=== PATIENT | male | born 1955 | race Hispanic/Latino ===

== ENCOUNTER → 2021-04-30 | Outpatient (CLI) | payer BC ==
[~2021-04-30] MED LIST: IBUP-2071 PO
== END | disposition home or self-care (01) ==
LOC: RAH 07:47
PROVIDERS: ATTEND Family Medicine
DX: M47.27 Other spondylosis with radiculopathy, lumbosacral region (principal); M48.07 Spinal stenosis, lumbosacral region; R25.2 Cramp and spasm; R94.31 Abnormal electrocardiogram [ECG] [EKG]
CPT/HCPCS: 72148

== ENCOUNTER 2023-05-25 10:43 | Inpatient (IN) | payer OTHER ==
[~2023-05-25] VITALS: Ht 165.1 cm; Wt 69.6 kg
[2023-05-25] MEDS ORDERED: PANTOPRAZOLE 40 MG/VIAL IVP ONE (14:30)
[2023-05-25] MEDS ORDERED: MORPHINE 4 MG SYG IVP ONE (14:30)
[2023-05-25] MEDS ORDERED: ONDANSETRON 4MG INJ IVP ONE (14:30)
[2023-05-25] MEDS ORDERED: DEXAMETHASONE SOD PHOSPHATE 4 MG/ML 1ML VIAL IV ONE (14:30)
[2023-05-25] MEDS ORDERED: KETOROLAC 15MG/ML VIAL (15MG/ML) IV ONE (14:30)
[2023-05-25] MEDS ORDERED: 0.9%NACL 1000ML 1,000 ML IV ONE (14:30)
[2023-05-25 15:08] LABS: BASOPHILS % (AUTO) 0.1 % (0.0-5.0); EOSINOPHILS % (AUTO) 0.6 % (0.0-8.0); HEMATOCRIT 49.3 % (42-54); LYMPHOCYTES % (AUTO) 9.2 % (21.0-51.0); MEAN CORPUSCULAR HEMOGLOBIN 33.1 pg (27.0-33.0); MEAN CORPUSCULAR HGB CONC 34.5 g/dL (32.0-36.0); MEAN CORPUSCULAR VOLUME 95.9 fL (79-99); MONOCYTES % (AUTO) 10.6 % (3.0-13.0); NEUTROPHILS % (AUTO) 73.5 % (40.0-77.0); PLATELET COUNT (AUTO) 254 K/uL (130-400); RED BLOOD CELL COUNT(AUTO) 5.14 MIL/uL (4.50-6.20); RED CELL DISTRIBUTION WIDTH 12.7 % (11.0-15.5); WHITE BLOOD COUNT (AUTO) 14.6 K/uL (4.8-10.8)
[2023-05-25 15:27] LABS: CREATININE 0.7 mg/dL (0.5-1.5); POTASSIUM 4.3 mmol/L (3.5-5.1)
[2023-05-25 15:31] LABS: ALBUMIN 3.5 g/dL (3.5-5.0); TOTAL PROTEIN, SERUM 6.9 g/dL (6.0-8.3)
[2023-05-25 15:44] LABS: APPEARANCE,URINE CLEAR (CLEAR); BILIRUBIN,URINE NEGATIVE (NEGATIVE); COLOR,URINE YELLOW (YELLOW); GLUCOSE, URINE (UA) NEGATIVE (NEGATIVE); KETONES,URINE NEGATIVE (NEGATIVE); LEUKOCYTE ESTERASE ,URINE NEGATIVE Leu/uL (NEGATIVE); NITRATE,URINE NEGATIVE (NEGATIVE); OCCULT BLOOD,URINE NEGATIVE (NEGATIVE); PROTEIN,URINE NEGATIVE (NEGATIVE); UROBILINOGEN,URINE 0.2 mg/dL (0.2-1.0)
[2023-05-25] MEDS ORDERED: HYDROMORPHONE 0.5 MG SYG (0.5MG/0.5ML) IVP ONE (16:00)
[2023-05-25] MEDS ORDERED: ONDANSETRON 4MG INJ IVP PRN (17:30)
[2023-05-25] MEDS ORDERED: ACETAMINOPHEN 325 MG TAB PO PRN (17:30)
[2023-05-25] MEDS: HEPARIN 5,000 UNIT VIAL SQ SCH (18:32)
[2023-05-25] MEDS: TRAMADOL HCL 50 MG TABLET PO PRN (18:38)
[2023-05-25] MEDS: HYDROMORPHONE 0.5 MG SYG (0.5MG/0.5ML) IVP PRN (23:33)
[2023-05-26] MEDS: HYDROMORPHONE 0.5 MG SYG (0.5MG/0.5ML) IVP PRN ×3 (04:16→21:41)
[2023-05-26] MEDS: HEPARIN 5,000 UNIT VIAL SQ SCH ×2 (06:11→17:30)
[2023-05-26 07:12] LABS: BASOPHILS % (AUTO) 0.7 % (0.0-5.0); EOSINOPHILS % (AUTO) 0.1 % (0.0-8.0); HEMATOCRIT 46.3 % (42-54); LYMPHOCYTES % (AUTO) 6.3 % (21.0-51.0); MEAN CORPUSCULAR HEMOGLOBIN 33.1 pg (27.0-33.0); MEAN CORPUSCULAR VOLUME 94.7 fL (79-99); MONOCYTES % (AUTO) 5.8 % (3.0-13.0); NEUTROPHILS % (AUTO) 82.5 % (40.0-77.0); PLATELET COUNT (AUTO) 262 K/uL (130-400); RED BLOOD CELL COUNT(AUTO) 4.89 MIL/uL (4.50-6.20); RED CELL DISTRIBUTION WIDTH 12.6 % (11.0-15.5); WHITE BLOOD COUNT (AUTO) 13.4 K/uL (4.8-10.8)
[2023-05-26 07:28] LABS: CREATININE 0.7 mg/dL (0.5-1.5); POTASSIUM 4.4 mmol/L (3.5-5.1); TOTAL PROTEIN, SERUM 6.4 g/dL (6.0-8.3)
[2023-05-26] MEDS: TRAMADOL HCL 50 MG TABLET PO PRN ×2 (07:43→21:38)
[2023-05-26 11:05] VITALS: BP 150/94; PULSE 76; RESP 18
[2023-05-26] MEDS ORDERED: HYDR-4060 PO (11:51)
[2023-05-26] MEDS ORDERED: GABA300S3 PO (11:51)
[2023-05-26] MEDS ORDERED: CYCL-309 PO (11:51)
[2023-05-26] MEDS ORDERED: BACL5TAB PO (11:51)
[2023-05-26] MEDS ORDERED: MAG/ALUM/SIMETH 30 ML UDCUP PO ONE (13:00)
[2023-05-26] MEDS ORDERED: MAG/ALUM/SIMETH 30 ML UDCUP PO PRN (13:00)
[2023-05-26] MEDS ORDERED: GABA300C PO (14:26)
[2023-05-26 16:00] VITALS: BP 148/89; PULSE 85; RESP 19
[2023-05-26] MEDS ORDERED: GADOTERATE MEGLUMINE 10 MMOL/20 ML VIAL IV ONE (16:05)
[2023-05-26 20:00] VITALS: BP 141/88; PULSE 99; RESP 20
[2023-05-26] MEDS: GABAPENTIN 300 MG CAPSULE PO SCH (20:13)
[2023-05-26] MEDS ORDERED: GABAPENTIN 300 MG CAPSULE PO SCH (21:00)
[2023-05-26 23:50] VITALS: BP 136/78; PULSE 77; RESP 19
[2023-05-27] VITALS (25 sets, daily range): BP systolic 103–164; BP diastolic 54–104; PULSE 66–111; RESP 12–19
[2023-05-27] MEDS: HYDROMORPHONE 0.5 MG SYG (0.5MG/0.5ML) IVP PRN ×3 (01:56→18:24)
[2023-05-27] MEDS: HEPARIN 5,000 UNIT VIAL SQ SCH ×2 (04:31→18:26)
[2023-05-27 07:54] LABS: HEMATOCRIT 46.6 % (42-54); MEAN CORPUSCULAR HEMOGLOBIN 33.1 pg (27.0-33.0); MEAN CORPUSCULAR HGB CONC 35.4 g/dL (32.0-36.0); MEAN CORPUSCULAR VOLUME 93.6 fL (79-99); RED BLOOD CELL COUNT(AUTO) 4.98 MIL/uL (4.50-6.20); RED CELL DISTRIBUTION WIDTH 12.6 % (11.0-15.5)
[2023-05-27] MEDS ORDERED: MIDAZOLAM HCL 1 MG/ML 2ML VIAL ONE (07:59)
[2023-05-27] MEDS ORDERED: LIDOCAINE PF 100MG/5ML (2%) SYRINGE 5ML ONE (07:59)
[2023-05-27] MEDS ORDERED: DEXAMETHASONE SOD PHOSPHATE 10MG/ML 1ML VIAL ONE ×2 (07:59→08:03)
[2023-05-27] MEDS ORDERED: SUCCINYLCHOLINE CHLORIDE 20 MG/ML 10 ML VIAL ONE (07:59)
[2023-05-27] MEDS ORDERED: GLYCOPYRROLATE 1 MG/5 ML SYRINGE ONE (07:59)
[2023-05-27] MEDS ORDERED: PROPOFOL 10 MG/ML 20ML VIAL IV ONE ×2 (08:00→10:58)
[2023-05-27] MEDS ORDERED: NEOSTIGMINE 5MG/5ML SYR IV ONE (08:00)
[2023-05-27] MEDS ORDERED: ONDANSETRON 4MG INJ ONE ×2 (08:00→08:03)
[2023-05-27] MEDS ORDERED: FENTANYL CITRATE PF 50 MCG/1 ML 2ML VIAL ONE ×4 (08:00→11:26)
[2023-05-27] MEDS ORDERED: ROCURONIUM 10MG/1ML SYR 10 MG/ML ML ONE (08:00)
[2023-05-27] MEDS: GABAPENTIN 300 MG CAPSULE PO SCH ×2 (08:05→22:39)
[2023-05-27] MEDS ORDERED: ARTIFICIAL TEARS 3.5 GM OINTMENT ONE (08:06)
[2023-05-27 08:07] LABS: CREATININE 0.7 mg/dL (0.5-1.5); POTASSIUM 4.3 mmol/L (3.5-5.1)
[2023-05-27] MEDS ORDERED: PHENYLEPHRINE HCL 10 MG/ML 1ML VIAL IV ONE (08:07)
[2023-05-27] MEDS ORDERED: PHARMACY COMMUNICATION MISC SCH (08:30)
[2023-05-27] MEDS ORDERED: CEFAZOLIN SODIUM 2 GM VIAL IVPB PRN (08:30)
[2023-05-27] MEDS ORDERED: THROMBIN-JMI 20000 UNIT KIT TP ONE (08:40)
[2023-05-27] MEDS ORDERED: MORPHINE PF 100MG/10ML AMP IV ONE (08:40)
[2023-05-27] MEDS ORDERED: CEFAZOLIN SODIUM 1 GM VIAL ONE ×2 (08:40→12:57)
[2023-05-27] MEDS ORDERED: CEFAZOLIN SODIUM 2 GM VIAL ONE (08:42)
[2023-05-27] MEDS ORDERED: LIDOCAINE 2%-EPI PF 30 ML+BUPIVACAINE/PF 0.25% 30ML /60ML SYR IJ SCH ×2 (09:00)
[2023-05-27] MEDS ORDERED: HYDROCODONE/ACETAMINOPHEN 5/325 MG TAB PO PRN (13:30)
[2023-05-27] MEDS ORDERED: CYCLOBENZAPRINE HCL 10 MG TABLET PO PRN (13:30)
[2023-05-27] MEDS ORDERED: NON-FORMULARY MEDICATION 1 EACH (Baclofen 5 MG) PO PRN (13:30)
[2023-05-27] MEDS: DEXAMETHASONE SOD PHOSPHATE 4 MG/ML 1ML VIAL IVP SCH ×2 (13:30→18:29)
[2023-05-27] MEDS: CEFAZOLIN SODIUM 2 GM VIAL IVPB SCH ×2 (13:30→22:40)
[2023-05-27] MEDS ORDERED: PROMETHAZINE HCL 25 MG/ML 1ML AMPULE IM PRN (13:30)
[2023-05-27] MEDS ORDERED: MORPHINE 2 MG SYG IVP PRN (13:30)
[2023-05-27] MEDS: LACTATED RINGERS 1000ML 1,000 ML IV SCH ×2 (13:30→22:41)
[2023-05-27] MEDS ORDERED: 0.9%NACL 10ML VIAL IVP PRN (13:30)
[2023-05-27] MEDS ORDERED: BACLOFEN 10 MG TABLET PO PRN (21:00)
[2023-05-27] MEDS: HYDROCODONE/ACETAMINOPHEN 5/325 MG TAB PO SCH (22:39)
[2023-05-28] VITALS: BP 114/60; PULSE 98; RESP 20
[2023-05-28 01:35] VITALS: TEMP 100.4
[2023-05-28] MEDS: DEXAMETHASONE SOD PHOSPHATE 4 MG/ML 1ML VIAL IVP SCH ×2 (01:36→05:59)
[2023-05-28 04:00] VITALS: BP 127/69; PULSE 80; RESP 19
[2023-05-28] MEDS: HEPARIN 5,000 UNIT VIAL SQ SCH (05:57)
[2023-05-28] MEDS: CEFAZOLIN SODIUM 2 GM VIAL IVPB SCH (05:58)
[2023-05-28 08:00] VITALS: BP 139/80; PULSE 87; RESP 18
[2023-05-28] MEDS: GABAPENTIN 300 MG CAPSULE PO SCH (09:08)
[2023-05-28] MEDS: HYDROCODONE/ACETAMINOPHEN 5/325 MG TAB PO SCH (09:09)
[2023-05-28 12:00] VITALS: BP 136/92; PULSE 85; RESP 18
== END 2023-05-28 15:45 | disposition home or self-care (01) | DRG 518 ==
LOC: EDH 10:43 → EDHIP 17:19 → 3DH 05-26 11:05 → 3CH 05-27 14:10
PROVIDERS: ADMIT Internal Medicine Infectious Disease; ATTEND Internal Medicine Infectious Disease
PROC: 0SB40ZZ Excision of Lumbosacral Disc, Open Approach (ICD-10-PCS; 2023-05-27)
PROC: 01NB0ZZ Release Lumbar Nerve, Open Approach (ICD-10-PCS; principal; 2023-05-27 09:20)
DX: M48.061 Spinal stenosis, lumbar region without neurogenic claudication (principal); U07.1 COVID-19; E87.1 Hypo-osmolality and hyponatremia; M54.16 Radiculopathy, lumbar region; I10 Essential (primary) hypertension; G89.29 Other chronic pain; E66.09 Other obesity due to excess calories; Z68.25 Body mass index [BMI] 25.0-25.9, adult
CPT/HCPCS: 36415; 71045; 72020; 72157; 72158; 74176; 80048; 80053; 81003; 82550; 83735; 85025; 85027; 87635; C9113; G0378; J0330; J0690; J1100; J1170; J1644; J1885; J2001; J2250; J2270; J2274; J2371; J2405; J2704; J2710; J3010; J3490; J7030

== ENCOUNTER 2023-07-18 15:13 | Emergency (ER) | payer OTHER ==
[~2023-07-18] VITALS: Ht 165.1 cm; Wt 70.3 kg
[~2023-07-18 15:13] MED LIST changes: +BACL5TAB PO; +CYCL-309 PO; +GABA300C PO; +HYDR-4060 PO; -IBUP-2071 PO
[2023-07-18 15:37] LABS: BASOPHILS # (AUTO) 0.04 K/uL (0.00-0.20); BASOPHILS % (AUTO) 0.6 % (0.0-5.0); EOSINOPHILS # (AUTO) 0.08 K/uL (0.00-0.70); EOSINOPHILS % (AUTO) 1.1 % (0.0-8.0); HEMATOCRIT 40.4 % (42-54); IMMATURE GRANULOCYTE ABSOLUTE 0.14 K/uL (0-1); LYMPHOCYTES # (AUTO) 2.1 K/uL (1.0-4.8); LYMPHOCYTES % (AUTO) 29.9 % (21.0-51.0); MEAN CORPUSCULAR HEMOGLOBIN 33.6 pg (27.0-33.0); MEAN CORPUSCULAR HGB CONC 34.4 g/dL (32.0-36.0); MEAN CORPUSCULAR VOLUME 97.6 fL (79-99); MONOCYTES # (AUTO) 0.7 K/uL (0.1-1.0); MONOCYTES % (AUTO) 9.9 % (3.0-13.0); NEUTROPHILS # (AUTO) 4.1 K/uL (1.8-7.7); NEUTROPHILS % (AUTO) 56.5 % (40.0-77.0); PLATELET COUNT (AUTO) 240 K/uL (130-400); RED BLOOD CELL COUNT(AUTO) 4.14 MIL/uL (4.50-6.20); RED CELL DISTRIBUTION WIDTH 13.2 % (11.0-15.5); WHITE BLOOD COUNT (AUTO) 7.2 K/uL (4.8-10.8)
[2023-07-18 15:45] LABS: CREATININE 0.7 mg/dL (0.5-1.5); POTASSIUM 3.8 mmol/L (3.5-5.1)
[2023-07-18 15:55] LABS: ALBUMIN 3.5 g/dL (3.5-5.0); BILIRUBIN,TOTAL 0.4 mg/dL (0.2-1.0); TOTAL PROTEIN, SERUM 6.5 g/dL (6.0-8.3)
[2023-07-18] MEDS ORDERED: EPINEPHRINE PF 1MG (1:1,000) 1 MG/ML AMP ONE (15:56)
[2023-07-18] MEDS ORDERED: DiphenhydrAMINE HCL 50 MG/ML VIAL IV ONE (16:00)
[2023-07-18] MEDS ORDERED: SOLU-MEDROL 125MG VIAL IVP ONE (16:00)
[2023-07-18] MEDS ORDERED: 0.9%NACL 1000ML 1,000 ML IV ONE (16:00)
[2023-07-18] MEDS ORDERED: FAMOTIDINE 20MG VIAL IV ONE (16:00)
[2023-07-18] MEDS ORDERED: EPINEPHRINE PF 1MG (1:1,000) 1 MG/ML AMP IM ONE (16:30)
[2023-07-18 16:35] LABS: APPEARANCE,URINE CLEAR (CLEAR); BILIRUBIN,URINE NEGATIVE (NEGATIVE); COLOR,URINE YELLOW (YELLOW); GLUCOSE, URINE (UA) NEGATIVE (NEGATIVE); KETONES,URINE NEGATIVE (NEGATIVE); LEUKOCYTE ESTERASE ,URINE NEGATIVE Leu/uL (NEGATIVE); NITRATE,URINE NEGATIVE (NEGATIVE); OCCULT BLOOD,URINE NEGATIVE (NEGATIVE); PH,URINE 6.5 (5.0-8.0); PROTEIN,URINE NEGATIVE (NEGATIVE); UROBILINOGEN,URINE 0.2 mg/dL (0.2-1.0)
[2023-07-18 17:38] LABS: ADD UA MICROSCOPIC YES
[2023-07-18 17:40] LABS: WBC,URINE 0-1 /HPF (0-1)
[2023-07-18 20:26] VITALS: BP 112/68; PULSE 76; RESP 16; O2SAT 97
== END 2023-07-18 20:54 | disposition home or self-care (01) ==
LOC: EDH 15:13
DX: T78.2XXA Anaphylactic shock, unspecified, initial encounter (principal); Z79.52 Long term (current) use of systemic steroids; Z79.899 Other long term (current) drug therapy
CPT/HCPCS: 99285; 96374; 71045; 96375; 84484; 80053; 85025; 81001; 36415; 93005 ×2; J1200; J3490; J2930; J0171

== ENCOUNTER → 2024-04-14 | Outpatient (CLI) | payer OTHER | END | disposition home or self-care (01) | LOC: RAH 08:10 | PROVIDERS: ATTEND Internal Medicine | DX: K76.0 Fatty (change of) liver, not elsewhere classified (principal); R74.8 Abnormal levels of other serum enzymes | CPT/HCPCS: 76700 ==